=== PATIENT | female | born 1980 | race Caucasian/White ===

== ENCOUNTER → 2023-12-10 09:06 | Outpatient (REF) | payer OTHER, SELFPAY | LOC: HWWDC 09:06 | PROVIDERS: ATTENDING PHYSICIAN Obstetrics & Gynecology; FAMILY PHYSICIAN Family Medicine | DX: Z12.31 Encounter for screening mammogram for malignant neoplasm of breast (principal) | CPT/HCPCS: 77063; 77067 ==

== ENCOUNTER → 2023-12-25 08:28 | Outpatient (REF) | payer OTHER, SELFPAY | LOC: WDC 08:28 | PROVIDERS: ATTENDING PHYSICIAN Obstetrics & Gynecology; FAMILY PHYSICIAN Family Medicine | DX: R92.8 Other abnormal and inconclusive findings on diagnostic imaging of breast (principal) | CPT/HCPCS: 76642 ==

== ENCOUNTER 2025-03-18 06:30 | Day surgery (SDC) | payer OTHER, SELFPAY ==
[2025-03-18] VITALS (9 sets, daily range): BP systolic 113–144; BP diastolic 76–90; BMI 22.6
[2025-03-18] MEDS: NORMOSOL-R/PLASMALYTE-A 1000 IV (09:18)
[2025-03-18] MEDS: TRANSDERM-SCOP 1 PATCH TRANSDERM (09:30)
[2025-03-18] MEDS: DILAUDID 0.25 MG IV (10:46)
== END 2025-03-18 12:19 | disposition home or self-care (01) ==
LOC: SDS 06:30
PROVIDERS: ATTENDING PHYSICIAN Obstetrics & Gynecology
DX: N39.3 Stress incontinence (female) (male) (principal); N36.41 Hypermobility of urethra
CPT/HCPCS: 57288; C1771